=== PATIENT | female | born 1985 | race Caucasian/White ===

== ENCOUNTER 2020-03-29 12:56 | Emergency (ER) | payer OTHER ==
[~2020-03-29] VITALS: Ht 165.1 cm; Wt 81.7 kg
== END 2020-03-29 15:51 | disposition home or self-care (01) ==
LOC: ER 12:56
DX: I80.02 Phlebitis and thrombophlebitis of superficial vessels of left lower extremity (principal)
CPT/HCPCS: 93971; 99283-25

== ENCOUNTER 2020-04-05 08:07 | Emergency (ER) | payer OTHER ==
[~2020-04-05] VITALS: Ht 165.1 cm; Wt 81.7 kg
[2020-04-05] MEDS ORDERED: ASPI325 PO (08:25)
== END 2020-04-05 09:14 ==
LOC: ER 08:07
DX: I82.812 Embolism and thrombosis of superficial veins of left lower extremity (principal); Z79.82 Long term (current) use of aspirin
CPT/HCPCS: 93971; 99282-25